=== PATIENT | male | born 1980 | race Caucasian/White ===

== ENCOUNTER 2023-09-16 21:11 | Emergency (ER) | payer MEDICAID ==
[~2023-09-16] VITALS: Ht 172.7 cm; Wt 79.5 kg
[2023-09-16 21:15] VITALS: BP 167/109; PULSE 86; RESP 16; TEMP 98.7; O2SAT 98
== END 2023-09-16 23:52 | disposition left against medical advice (07) ==
LOC: ER 21:12
DX: M25.562 Pain in left knee (principal); Z53.21 Procedure and treatment not carried out due to patient leaving prior to being seen by health care provider

== ENCOUNTER 2024-04-22 16:04 | Emergency (ER) | payer MEDICAID ==
[~2024-04-22] VITALS: Ht 170.2 cm; Wt 79.2 kg
[2024-04-22 17:17] LABS: BASOPHILS # (AUTO) 0.1 X10'3 (0-0.2); BASOPHILS % (AUTO) 1.3 % (0-1); EOSINOPHILS # (AUTO) 0.1 X10'3 (0-0.9); EOSINOPHILS % (AUTO) 1.6 % (0-6); HEMATOCRIT 43.4 % (42.0-52.0); HEMOGLOBIN 15.5 g/dl (14.0-17.9); LYMPHOCYTES % (AUTO) 30.5 % (21-51); MEAN CORPUSCULAR HEMOGLOBIN 31.3 PG (27.0-31.0); MEAN CORPUSCULAR HGB CONC 35.6 g/dL (33.0-36.5); MEAN PLATELET VOLUME 8.1 FL (7.4-10.4); MONOCYTES # (AUTO) 0.5 X10'3 (0-0.9); MONOCYTES % (AUTO) 8.4 % (2-12); NEUTROPHILS # (AUTO) 3.8 X10'3 (1.8-7.7); NEUTROPHILS % (AUTO) 58.2 % (42-75); PLATELET COUNT 247 X10'3 (140-440); RED BLOOD COUNT 4.94 X10'6 (4.70-6.10); RED CELL DISTRIBUTION WIDTH 13.6 % (11.5-14.5); WHITE BLOOD COUNT 6.5 X10'3 (4.5-11.0)
[2024-04-22 17:29] LABS: APTT 25 SECONDS (22-32); PROTHROMBIN TIME 10.2 SECONDS (9.0-12.0)
[2024-04-22 17:39] LABS: ALANINE AMINOTRANSFERASE 31 U/L (12-78); ALBUMIN 3.6 G/DL (3.4-5.0); ALBUMIN/GLOBULIN RATIO 1.2 (1.1-1.5); ALKALINE PHOSPHATASE 104 IU/L (46-116); ANION GAP 8 (8-16); ASPARTATE AMINO TRANSFERASE 20 U/L (10-37); BILIRUBIN,TOTAL 1.3 MG/DL (0.1-1.0); BLOOD UREA NITROGEN 18 MG/DL (7-18); BUN/CREATININE RATIO 16.7 (10.0-20.0); CALCIUM 8.7 MG/DL (8.5-10.1); CHLORIDE 107 MMOL/L (99-107); CREATININE 1.08 MG/DL (0.60-1.10); GLUCOSE 138 MG/DL (70-104); POTASSIUM 3.4 MMOL/L (3.5-5.1); SODIUM 141 MMOL/L (135-145); TOTAL PROTEIN 6.7 G/DL (6.4-8.2); eCRCL 81 ML/MIN; eGFR 74 ML/MIN
[2024-04-22 19:03] VITALS: O2SAT 97
[2024-04-22] MEDS ORDERED: iohexol 350MG/ML 100ml bottle IV ONE (19:48)
[2024-04-22 20:11] LABS: ETHANOL < 10 MG/DL (<10)
[2024-04-22] MEDS ORDERED: AMLO10TA PO (21:08)
[2024-04-22] MEDS ORDERED: METF-436 PO (21:08)
[2024-04-22 21:17] VITALS: BP 155/100; PULSE 78; RESP 18; TEMP 98.3
== END 2024-04-22 21:22 | disposition left against medical advice (07) ==
LOC: ER 16:05
DX: I63.9 Cerebral infarction, unspecified (principal); I10 Essential (primary) hypertension; E11.65 Type 2 diabetes mellitus with hyperglycemia
CPT/HCPCS: 36415; 70460; 80053; 80320; 82948; 83735; 85025; 85610; 85730; 99285; Q9967; 70450; 99284